=== PATIENT | female | born 1965 | race Caucasian/White ===

== ENCOUNTER 2018-04-08 11:16 | Day surgery (SDC) | payer BC, OTHER ==
[2018-04-07 09:39] VITALS: BMI 24.3
[2018-04-08] MEDS ORDERED: ONDANSETRON 4 MG/2 ML VIAL ONE (12:04)
[2018-04-08 12:53] VITALS: TEMP 97.5
[2018-04-08 13:13] VITALS: BP 113/50; PULSE 76
--- NOTE | 2018-04-11 17:05 | PATH ---
Surgical Pathology Report Patient Name: OLINDA [facility]. Rec. #: [id number] /Age/Gender: 1965 (Age: 52) / F Account: [id number] Location: U-ENDOSCOPY Taken: 04/08/2018 Received: 04/08/2018 Reported: 04/11/2018 Physicians: Mora Sierra M.D. Specimen(s) Received A: BX DUODENUM B: BX ANTRUM C: BX DISTAL AND MID ESOPHAGUS D: SIGMOID COLON POLYP BX Clinical History A and Refractory GERD, family history of colon cancer Postop diagnosis: Hiatal hernia, GERD, diverticulosis, sigmoid polyps Final Diagnosis A. DUODENUM, SECOND PORTION AND BULB, BIOPSY: DUODENAL MUCOSA WITHOUT SIGNIFICANT PATHOLOGIC FINDINGS. B. STOMACH, ANTRUM, BIOPSY: GASTRIC ANTRAL MUCOSA WITH MILD CHRONIC GASTRITIS. IMMUNOHISTOCHEMICAL STAIN FOR H. PYLORI IS NEGATIVE. C. DISTAL AND MID ESOPHAGUS, BIOPSY: SQUAMOUS MUCOSA WITH VASCULAR CONGESTION. D. SIGMOID COLON, POLYPS, BIOPSY: POLYPOID COLONIC MUCOSA WITH PROMINENT LYMPHOID AGGREGATES. Electronically Signed Jasmine García M.D. Gross Description A. Received in formalin, labeled "biopsy second portion of duodenum and bulb" are 2 lilly, irregular portions of soft tissue averaging 0.4 cm. in greatest dimension. The specimens are submitted in toto in one cassette. B. Received in formalin, labeled "biopsy antrum" are 4 lilly, irregular portions of soft tissue ranging from 0.3-0.6 cm. in greatest dimension. The specimens are submitted in toto in one cassette. C. Received in formalin, labeled "biopsy distal and mid esophagus" are 4 lilly, irregular portions of soft tissue ranging from 0.2-0.8 cm. in greatest dimension. The specimens are submitted in toto in one cassette. D. Received in formalin, labeled "sigmoid colon polyps" are 3 lilly, irregular portions of soft tissue ranging from 0.4-0.5 cm. in greatest dimension. The specimens are submitted in toto in one cassette. 04/08/2018 saudi04/08/2018
== END 2018-04-08 13:35 | disposition home or self-care (01) ==
LOC: JASU-ENDO 11:16
PROVIDERS: ATTEND Internal Medicine Gastroenterology
PROC: 0DB98ZX Excision of Duodenum, Via Natural or Artificial Opening Endoscopic, Diagnostic (ICD-10-PCS; 2018-04-08)
PROC: 0DB68ZX Excision of Stomach, Via Natural or Artificial Opening Endoscopic, Diagnostic (ICD-10-PCS; 2018-04-08)
PROC: 0DB28ZX Excision of Middle Esophagus, Via Natural or Artificial Opening Endoscopic, Diagnostic (ICD-10-PCS; 2018-04-08)
PROC: 0DB38ZX Excision of Lower Esophagus, Via Natural or Artificial Opening Endoscopic, Diagnostic (ICD-10-PCS; 2018-04-08)
PROC: 0DBN8ZX Excision of Sigmoid Colon, Via Natural or Artificial Opening Endoscopic, Diagnostic (ICD-10-PCS; principal; 2018-04-08 12:00)
DX: Z12.11 Encounter for screening for malignant neoplasm of colon (principal); Z80.0 Family history of malignant neoplasm of digestive organs; D12.5 Benign neoplasm of sigmoid colon; K57.30 Diverticulosis of large intestine without perforation or abscess without bleeding; K21.9 Gastro-esophageal reflux disease without esophagitis; K44.9 Diaphragmatic hernia without obstruction or gangrene
CPT/HCPCS: 84703; 88305-TC; 88342-TC